=== PATIENT | male | born 1950 | race Caucasian/White ===

== ENCOUNTER 2023-03-31 09:52 | Outpatient (CLI) | payer OTHER | END 2023-03-31 09:53 | disposition home or self-care (01) | LOC: BICRAD 09:52 | PROVIDERS: ATTEND Internal Medicine Hematology & Oncology | DX: C10.9 Malignant neoplasm of oropharynx, unspecified (principal) | CPT/HCPCS: 71046 ==

== ENCOUNTER 2023-07-01 10:59 | Outpatient (CLI) | payer OTHER | END 2023-07-01 11:00 | disposition home or self-care (01) | LOC: RAD 10:59 | PROVIDERS: ATTEND Otolaryngology Otolaryngic Allergy | DX: R13.11 Dysphagia, oral phase (principal); R13.12 Dysphagia, oropharyngeal phase; C01 Malignant neoplasm of base of tongue | CPT/HCPCS: 74230 ==

== ENCOUNTER 2024-04-06 07:54 | Outpatient (CLI) | payer OTHER ==
[2024-04-06] MEDS ORDERED: Iopamidol 370 76% 100 ML VIAL ONE (09:09)
== END 2024-04-06 07:55 | disposition home or self-care (01) ==
LOC: BICCT 07:54
PROVIDERS: ATTEND Internal Medicine Hematology & Oncology
DX: C10.9 Malignant neoplasm of oropharynx, unspecified (principal); R91.8 Other nonspecific abnormal finding of lung field; K76.89 Other specified diseases of liver
CPT/HCPCS: 70491; 71260; 74177; Q9967

== ENCOUNTER 2025-02-09 10:53 | Outpatient (CLI) | payer OTHER | END 2025-02-09 10:54 | disposition home or self-care (01) | LOC: BICRAD 10:53 | PROVIDERS: ATTEND Family Medicine | DX: J22 Unspecified acute lower respiratory infection (principal); J98.4 Other disorders of lung; J18.9 Pneumonia, unspecified organism | CPT/HCPCS: 71046 ==

== ENCOUNTER 2025-02-13 09:14 | Outpatient (CLI) | payer OTHER | END 2025-02-13 09:15 | disposition home or self-care (01) | LOC: SCSMRI 09:14 | PROVIDERS: ATTEND Family Medicine | DX: M50.11 Cervical disc disorder with radiculopathy, high cervical region (principal); M50.121 Cervical disc disorder at C4-C5 level with radiculopathy; M51.24 Other intervertebral disc displacement, thoracic region; M47.22 Other spondylosis with radiculopathy, cervical region; M48.02 Spinal stenosis, cervical region; M48.03 Spinal stenosis, cervicothoracic region; M48.04 Spinal stenosis, thoracic region | CPT/HCPCS: 72141 ==